=== PATIENT | female | born 1950 | race American Indian/Alaskan Native ===

== ENCOUNTER 2017-03-31 13:17 | Outpatient (CLI) | payer MEDICARE ==
--- NOTE | 2017-03-31 14:47 | Cat Scan Report ---
CT of the lumbar spine without contrast. History: Low back pain. Procedure and findings: Helical acquisition with axial images, reformatted coronal and sagittal images were obtained. The vertebral body heights are well maintained and normally aligned. There no fractures or subluxations. The disc spaces are normal. A circumscribed benign appearing lytic lesion is seen in the vertebral body of L1. At L5-S1, there is moderate facet joint DJD and mild hypertrophy bilaterally. Incidentally noted are multiple bilateral hypodense renal masses which are incompletely imaged on this study. Impression: 1. No fractures or other acute findings. 2. Moderate facet joint DJD and hypertrophy at L5-S1. 3. Bilateral renal masses, incompletely imaged. Renal ultrasound is recommended for further evaluation.
== END 2017-03-31 13:18 | disposition home or self-care (01) ==
LOC: CT 13:17
PROVIDERS: ATTEND Physical Medicine & Rehabilitation
DX: M47.896 Other spondylosis, lumbar region (principal); M48.8X6 Other specified spondylopathies, lumbar region; N28.89 Other specified disorders of kidney and ureter; F11.20 Opioid dependence, uncomplicated; I11.0 Hypertensive heart disease with heart failure; I50.9 Heart failure, unspecified; E78.00 Pure hypercholesterolemia, unspecified; J44.9 Chronic obstructive pulmonary disease, unspecified; J45.909 Unspecified asthma, uncomplicated; J18.9 Pneumonia, unspecified organism; F32.9 Major depressive disorder, single episode, unspecified; Z87.891 Personal history of nicotine dependence
CPT/HCPCS: 72131

== ENCOUNTER 2017-04-25 12:00 | Emergency (ER) | payer MEDICARE ==
[2017-04-25 12:24] VITALS: BP 170/89
--- NOTE | 2017-04-25 13:15 | XRay Report ---
RIGHT ANKLE, 3 views: History: Pain and swelling. There is severe lateral soft tissue swelling. An oblique nondisplaced fracture is identified in the distal fibula just proximal to the tibiotalar joint. No calcified callus is identified. The distal tibia and talar dome are intact. Moderate plantar spur is noted. IMPRESSION: Traumatic fracture, distal fibula.
--- NOTE | 2017-04-25 14:23 | Emergency Department Report ---
Entered by PRANEETH KRISHNA, acting as scribe for RONNIE GONZALEZ NP. Chief Complaint: Fall Stated Complaint: SPRAINED RT ANKLE Time Seen by Provider: 04/25/17 12:18 - HPI History of Present Illness: Pt is a 66 y.o female who presents to ED for evaluation of constant right ankle pain following a fall earlier today. - ROS Review of Systems: Positive for right ankle pain Negative for other focal pain or syncope - Exam Vital Signs: Vital Signs 04/25/17 12:20 Temperature 99.3 F Pulse Rate 98 H Respiratory 20 Rate Blood Pressure 170/89 O2 Sat by Pulse 97 Oximetry Physical Exam: + r ankle edema MSE screening note: Focused history and physical exam performed. Due to findings the following was ordered: Ordered: x-rays ED Disposition for MSE Condition: Stable This documentation as recorded by the scribe,PRANEETH KRISHNA,accurately reflects the service I personally performed and the decisions made by LISA pompa TRACY M , HERMANN.
[2017-04-25] MEDS ORDERED: PERCOCET 5/325 PO ONE (14:39)
--- NOTE | 2017-04-25 14:39 | Emergency Department Report ---
ED Extremity Problem HPI - General Chief complaint: Fall Stated complaint: SPRAINED RT ANKLE Time Seen by Provider: 04/25/17 12:18 Source: patient, family, EMS Mode of arrival: Wheelchair Limitations: No Limitations - History of Present Illness Initial comments: Patient here before that she fell today and sprained her right ankle during the fall. She says she tripped and fell onto the floor while wearing slippers. She says she fell backwards. Denies any head injury or loss of consciousness. Denies any visual difficulties, neck pain or headache. Denies any dizziness prior to falling. Patient says the fall was accidental and she did not hit her head she just twisted her ankle. Pain is 9 out of 10 and aching. Better with rest .worst with movement and palpation. He came to the hospital via ambulance and her family is at her bedside. She hasn't has a history of blood pressure medication and she is taking medication. She said her blood pressure is elevated because she is in pain blood pressure in triage is 170/89. Patient also has a history of arthritis, asthma, congestive heart failure, COPD, ED is that is diet controlled, GERD. She has coronary artery disease and had a heart attack in 1998. She has internal defibrillator and history of pacemaker. MD Complaint: joint swelling, joint paint Location: right (ankle), lower extremity Radiation: none Severity scale (0 -10): 9 Quality: aching Consistency: intermittent Improves with: immobilization, rest Worsens with: weight bearing, walking, palpation Associated Symptoms: arthralgias. denies: chest pain, shortness of breath, fever, myalgias, rash - Related Data Home Medications Medication Instructions Recorded Confirmed Last Taken ALBUTEROL Inhaler [ProAir HFA 2 puff INHALATION Q4H PRN 02/25/14 07/25/16 05:00 Inhaler] Carvedilol [Coreg] 6.25 mg PO BID 02/25/14 07/25/16 07/25/16 05:00 ISOSORBIDE MONOnitrate [Monoket] 20 mg PO BID 02/25/14 07/25/16 07/24/16 19:00 Simvastatin [Zocor TAB] 40 mg PO DAILY 02/25/14 07/25/16 07/24/16 21:00 Aspirin [Adult Low Dose Aspirin EC] 81 mg PO DAILY 07/21/16 07/25/16 07/22/16 09 :00 FLUoxetine [PROzac] 20 mg PO QDAY 07/21/16 07/25/16 07/24/16 09:00 Fluticasone/Salmeterol [Advair 1 puff IH BID 07/21/16 07/25/16 07/25/16 05:00 Diskus 100-50 mcg] Furosemide [Furosemide] 40 mg PO DAILY 07/21/16 07/25/16 07/22/16 09:00 Gabapentin [Gabapentin] 300 mg PO TID 07/21/16 07/25/16 07/24/16 19:00 Ipratropium/Albuterol Sulfate 1 ampul IH Q6HR 07/21/16 07/25/16 07/24/16 21:00 [Duoneb 0.5 mg-3 mg/3 ml Soln] Solifenacin Succinate (Nf) 5 mg PO DAILY 07/21/16 07/25/16 07/24/16 09:00 [Vesicare (Nf)] amLODIPine [Norvasc] 5 mg PO DAILY 07/21/16 07/25/16 07/25/16 05:00 hydrALAZINE [Apresoline TAB] 25 mg PO BID 07/21/16 07/25/16 07/25/16 05:00 Previous Rx's Medication Instructions Recorded Last Taken Type HYDROcodone/APAP 5-325 [Manti 1 each PO Q6HR PRN #16 tablet 04/25/17 Unknown Rx 5/325] Allergies Allergy/AdvReac Type Severity Reaction Status Date / Time levofloxacin [From Levaquin] Allergy Itching Verified 07/21/16 14:25 metronidazole [From Flagyl] Allergy whelps Verified 07/21/16 14:25 prednisone Allergy Hives Verified 07/21/16 14:25 temazepam AdvReac Rash Verified 07/25/16 11:33 ED Review of Systems ROS: Stated complaint: SPRAINED RT ANKLE Other details as noted in HPI Comment: All other systems reviewed and negative Constitutional: denies: chills, fever Eyes: denies: vision change ENT: denies: epistaxis Cardiovascular: denies: chest pain, palpitations, edema, syncope Gastrointestinal: denies: abdominal pain, nausea, vomiting, diarrhea, constipation Musculoskeletal: joint swelling, arthralgia. denies: back pain, myalgia Skin: denies: rash Neurological: abnormal gait (due to rt ankle injury). denies: headache, weakness, numbness, paresthesias, confusion, vertigo ED Past Medical Hx - Past Medical History Previous Medical History?: Yes Hx Hypertension: Yes (since 1997) Hx Heart Attack/AMI: Yes (1998) Hx Congestive Heart Failure: Yes Hx Diabetes: Yes (not taking any meds at present time) Hx GERD: Yes Hx Arthritis: Yes Hx Asthma: Yes Hx COPD: Yes - Surgical History Past Surgical History?: Yes Hx Pacemaker: Yes (left chest) Hx Internal Defibrillator: Yes Additional Surgical History: Bilateral tubal ligation - Family History Family history: CAD/OR, hypertension - Social History Smoking Status: Former Smoker Substance Use Type: Prescribed Other Social History: lives at home - Medications Home Medications: Home Medications Medication Instructions Recorded Confirmed Last Taken Type ALBUTEROL Inhaler [ProAir HFA 2 puff INHALATION Q4H PRN 02/25/14 07/25/16 05:00 History Inhaler] Carvedilol [Coreg] 6.25 mg PO BID 02/25/14 07/25/16 07/25/16 05:00 History ISOSORBIDE MONOnitrate [Monoket] 20 mg PO BID 02/25/14 07/25/16 07/24/16 19:00 History Simvastatin [Zocor TAB] 40 mg PO DAILY 02/25/14 07/25/16 07/24/16 21:00 History Aspirin [Adult Low Dose Aspirin EC] 81 mg PO DAILY 07/21/16 07/25/16 07/22/16 09 :00 History FLUoxetine [PROzac] 20 mg PO QDAY 07/21/16 07/25/16 07/24/16 09:00 History Fluticasone/Salmeterol [Advair 1 puff IH BID 07/21/16 07/25/16 07/25/16 05:00 History Diskus 100-50 mcg] Furosemide [Furosemide] 40 mg PO DAILY 07/21/16 07/25/16 07/22/16 09:00 History Gabapentin [Gabapentin] 300 mg PO TID 07/21/16 07/25/16 07/24/16 19:00 History Ipratropium/Albuterol Sulfate 1 ampul IH Q6HR 07/21/16 07/25/16 07/24/16 21:00 History [Duoneb 0.5 mg-3 mg/3 ml Soln] Solifenacin Succinate (Nf) 5 mg PO DAILY 07/21/16 07/25/16 07/24/16 09:00 History [Vesicare (Nf)] amLODIPine [Norvasc] 5 mg PO DAILY 07/21/16 07/25/16 07/25/16 05:00 History hydrALAZINE [Apresoline TAB] 25 mg PO BID 07/21/16 07/25/16 07/25/16 05:00 History HYDROcodone/APAP 5-325 [Manti 1 each PO Q6HR PRN #16 tablet 04/25/17 Unknown Rx 5/325] ED Physical Exam - General Limitations: No Limitations General appearance: alert, in no apparent distress - Head Head exam: Present: atraumatic, normocephalic, normal inspection - Expanded Head Exam Expanded Head exam: Absent: laceration, abrasion, contusion, hematoma, racoon eyes, corado's sign, general tenderness, tenderness of temporal artery, CSF rhinorrhea , CSF otorrhea - Eye Eye exam: Present: normal appearance, PERRL, EOMI. Absent: nystagmus, periorbital swelling, periorbital tenderness Pupils: Present: normal accommodation - ENT ENT exam: Present: normal exam, normal orophraynx, mucous membranes moist - Neck Neck exam: Present: normal inspection, full ROM. Absent: tenderness, meningismus, lymphadenopathy - Expanded Neck Exam Expanded Neck exam: Absent: tenderness, midline deformity, anterior neck swelling, tracheal deviation - Respiratory Respiratory exam: Present: normal lung sounds bilaterally. Absent: respiratory distress, chest wall tenderness - Cardiovascular Cardiovascular Exam: Present: regular rate, normal rhythm, normal heart sounds - GI/Abdominal GI/Abdominal exam: Present: soft, normal bowel sounds. Absent: distended, tenderness, guarding, rebound, rigid - Extremities Exam Extremities exam: Present: tenderness (Rt ankle), normal capillary refill, joint swelling. Absent: normal inspection, full ROM (LROM to rt ankle), pedal edema, calf tenderness - Expanded Lower Extremity Exam Right Hip exam: Present: normal inspection, full ROM, pelvic stability. Absent: tenderness, swelling, abrasion, laceration, ecchymosis, deformity, crepidus, dislocation, erythema, external rotation, internal rotation, shortening Upper Leg exam: Present: normal inspection, full ROM. Absent: tenderness, swelling, abrasion, laceration, ecchymosis, deformity, crepidus, dislocation, erythema Knee exam: Present: normal inspection, full ROM, full knee extension. Absent: tenderness, swelling, abrasion, laceration, ecchymosis, deformity, crepidus, dislocation, erythema, effusion, pain w/ pronation/supination Lower Leg exam: Present: normal inspection, full ROM. Absent: tenderness, swelling, abrasion, laceration, ecchymosis, deformity, crepidus, dislocation, erythema, palpable cord, Dale's sign Ankle exam: Present: tenderness (rt outer ankle), swelling. Absent: normal inspection, full ROM (Lrom ), abrasion, laceration, ecchymosis, deformity, crepidus, dislocation, erythema Foot/Toe exam: Present: normal inspection, full ROM. Absent: tenderness, swelling, abrasion, laceration, ecchymosis, deformity, crepidus, dislocation, erythema, amputation, puncture wound, foreign body, calcaneal tenderness, tenderness at base of 5th metatarsal, nail avulsion, subungual hematoma Neuro vascular tendon exam: Present: no vascular compromise, motor deficit (pat lrom rt ankle.), significant pain with passive ROM of distal joint. Absent: pulse deficit, abnormal cap refill, sensory deficit, tendon deficit, extremity cold to touch, pallor, abnormal 2-point discrimination, decreased fine/light touch, foot drop, peroneal nerve deficit Gait: Positive: unable to bear weight - Back Exam Back exam: Present: normal inspection, full ROM. Absent: tenderness, CVA tenderness (R), CVA tenderness (L), muscle spasm, paraspinal tenderness, vertebral tenderness, rash noted - Neurological Exam Neurological exam: Present: alert, oriented X3, abnormal gait (rle due ankle fracture), reflexes normal - Psychiatric Psychiatric exam: Present: normal affect, normal mood - Skin Skin exam: Present: warm, dry, intact, normal color. Absent: rash ED Course Vital Signs 04/25/17 04/25/17 12:20 14:47 Temperature 99.3 F Pulse Rate 98 H Respiratory 20 20 Rate Blood Pressure 170/89 O2 Sat by Pulse 97 Oximetry - Reevaluation(s) Reevaluation #1: 04/25/17 16:08 She given Percocet 5/325 2 tablets in the emergency room which relieved her pain. See procedure note for splinting Reevaluation #2: 04/25/17 15:45 Post neurovascular check after splint placement, patient with good color, sensation, movement and temperature to Rt foot and toes. - Orthopedic Splinting/Casting Injury #1 Side: right Lower Extremity Injury Location: ankle Lower Extremity Immobilizer: posterior splint Other Orthopedic Equipment: crutches Additional Comments: Patient with good color, movement, sensation and temperature to right foot after splint placement. ED Medical Decision Making - Radiology Data Radiology results: report reviewed X-ray of right ankle reveals traumatic fracture distal fibula, moderate plantar spur. The distal tibia and patella dome are intact - Medical Decision Making ED course: Pt here status post falling and twisting her right ankle. X-rays show that she has traumatic distal fibular fracture. She is with ankle pain and swelling. She unable to weight bear to right lower extremity due to ankle injury. See procedure note for detail on splint in and neurovascular check. Patient with multiple comorbidities and her blood pressure was 170/89 and she is on but pressure medication which she says she takes but her blood pressure goes up when she is in pain. Patient denies any fainting or dizziness prior to fall she said it was accidental. Patient with diagnosis of accidental fall, arthralgia right ankle, fracture distal fibula. Patient was given Percocet 5/ 325 mg 2 tablets for pain which relieved her pain in emergency room. She was given crutches with training and demonstrates appropriate use. I discussed with patient that she will need to follow-up with orthopedic doctor to call tomorrow to schedule an appointment and she should avoid weightbearing to right lower extremity. Patient discharged home with her family with prescription for Manti. Critical care attestation.: If time is entered above; I have spent that time in minutes in the direct care of this critically ill patient, excluding procedure time. ED Disposition Clinical Impression: Arthralgia of right ankle Accidental fall Qualifiers: Encounter type: initial encounter Qualified Code(s): W19.XXXA - Unspecified fall, initial encounter Fracture of distal fibula Qualifiers: Encounter type: initial encounter Fracture type: closed Fracture morphology: unspecified fracture morphology Laterality: right Qualified Code(s): S82.831A - Other fracture of upper and lower end of right fibula, initial encounter for closed fracture Disposition: -01 TO HOME OR SELFCARE Is pt being admited?: No Does the pt Need Aspirin: No Condition: Stable Instructions: Ankle Fracture (ED), Fall Prevention for Older Adults (ED), Splint Care (ED), Arthralgia (ED) Additional Instructions: He is followed with orthopedic doctor as instructed Follow discharge instructions on splint care no weightbearing to right lower extremity do not use Manti while driving or operating heavy machinery as this medication will cause drowsiness. do not remove or get splint wet. Prescriptions: HYDROcodone/APAP 5-325 [Manti 5/325] 1 each PO Q6HR PRN #16 tablet PRN Reason: Pain Referrals: RACHEL BARRERA MD [Primary Care Provider] - 2-3 Days ARRON VALE MD [Staff Physician] - 04/27/17 Forms: Accompanied Note
== END 2017-04-25 16:34 | disposition home or self-care (01) ==
LOC: ED 12:00
DX: S82.831A Other fracture of upper and lower end of right fibula, initial encounter for closed fracture (principal); I10 Essential (primary) hypertension; I25.2 Old myocardial infarction; I50.9 Heart failure, unspecified; E11.9 Type 2 diabetes mellitus without complications; K21.9 Gastro-esophageal reflux disease without esophagitis; M19.90 Unspecified osteoarthritis, unspecified site; J45.909 Unspecified asthma, uncomplicated; Z95.0 Presence of cardiac pacemaker; Z87.891 Personal history of nicotine dependence; Z79.82 Long term (current) use of aspirin; Z88.1 Allergy status to other antibiotic agents; W19.XXXA Unspecified fall, initial encounter; Y93.89 Activity, other specified; Y99.9 Unspecified external cause status; Y92.89 Other specified places as the place of occurrence of the external cause

== ENCOUNTER 2017-06-28 09:40 | Outpatient (CLI) | payer MEDICARE ==
--- NOTE | 2017-06-28 10:26 | XRay Report ---
Right ankle 3 views. History: Followup fracture. Findings: There is a healing fracture of the distal shaft of the right fibula with abundant callus formation surrounding the fracture site. No other fractures or dislocations are seen.
== END 2017-06-28 09:41 | disposition home or self-care (01) ==
LOC: XRAY 09:40
PROVIDERS: ATTEND Orthopaedic Surgery
DX: S82.491D Other fracture of shaft of right fibula, subsequent encounter for closed fracture with routine healing (principal); S93.401D Sprain of unspecified ligament of right ankle, subsequent encounter; X58.XXXD Exposure to other specified factors, subsequent encounter

== ENCOUNTER 2018-06-18 10:13 | Outpatient (CLI) | payer MEDICARE ==
--- NOTE | 2018-06-18 15:25 | Nuclear Medicine Report ---
NUCLEAR MEDICINE PARATHYROID SCAN: HISTORY: Hyperparathyroidism. FINDINGS: The initial scintigraphic images of the thyroid bed demonstrate normal and symmetric uptake of the radiotracer in the thyroid bed. Normal salivary and mediastinal activity is identified. The delayed images demonstrate normal washout of the radiotracer from the thyroid bed. No persistent activity is identified to suggest a parathyroid adenoma. IMPRESSION: Normal parathyroid scan.
== END 2018-06-18 10:14 | disposition home or self-care (01) ==
LOC: NM 10:13
PROVIDERS: ATTEND Internal Medicine Nephrology
DX: N25.81 Secondary hyperparathyroidism of renal origin (principal); J44.1 Chronic obstructive pulmonary disease with (acute) exacerbation; I11.0 Hypertensive heart disease with heart failure; I50.9 Heart failure, unspecified; E11.9 Type 2 diabetes mellitus without complications; E78.00 Pure hypercholesterolemia, unspecified; K21.9 Gastro-esophageal reflux disease without esophagitis; M19.90 Unspecified osteoarthritis, unspecified site; Z87.891 Personal history of nicotine dependence
CPT/HCPCS: 78070; A9500